=== PATIENT | female | born 1980 | race Caucasian/White ===

== ENCOUNTER 2017-03-31 11:58 | Emergency (ER) | payer SELFPAY ==
[~2017-03-31] VITALS: Ht 152.4 cm; Wt 68.0 kg
[~2017-03-31 11:58] MED LIST: IRON325 MG PO
--- OUTSIDE RECORDS SUMMARY | 2017-03-31 12:06 | External Medical Summary Rpt ---
Demographics Preferred Language Bulgarian Marital Status Unknown Synagogue Affiliation Unknown Race Unknown Ethnic Group Unknown Author Author , NU JUDGE Address Unknown Phone Immunization Unable to retrieve immunization data due to connection failure with Immunization Registry. Please try again later.
--- OUTSIDE RECORDS SUMMARY | 2017-03-31 12:06 | External Medical Summary Rpt ---
Author Author , NU JUDGE Address Unknown Phone [email or web address] Care Team Providers Care Faculty Head Name Role Phone FRANCIS CARTER, FRANCIS CARTER Unavailable Unavailable [facility] Unavailable Unavailable SERVICE, [facility] Unavailable Unavailable SERVICE, [facility] ALEXESSIE DANG, Unavailable Unavailable ALEX AGA MELISSA BELTRAN MD, Unavailable Unavailable MELISSA KHANNA, ANJANA Unavailable Unavailable JEY BELTRAN GE, RUBY Unavailable Unavailable [facility] Unavailable Unavailable [facility], [facility] MCCOUN TWIN, MCCOUN Unavailable Unavailable [facility] GABRIELA, Unavailable Unavailable [facility] SHANNON GARCIA, SHANNON GARCIA Unavailable Unavailable [facility], Unavailable Unavailable [facility] Unavailable [facility], [facility] Purpose Continuity of Care Document - 07-04-2013 through 2016 Problems Code Diagnosis DOS Provider Status 67909 PREMATURE 07-07-2013 [place] MEDICAL RUPTURE SERV [facility] ANTEPARTUM 45829 ABNORM 07-07-2013 [place] MEDICAL HEART SERV [facility] RATE/RHYTHM ANTPRTM COND/COMP 41207 UNSPECIFIED 07-07-2013 [place] MEDICAL FAILED SERV TRIAL OF FOUNDATIO LABOR ANTEPARTUM 41177 C/S [facility] 07-07-2013 [place] W/O MENTION OF [place] [facility] UNS EPIS CARE V252 STERILIZATI 07-07-2013 [facility] 06650 DIAB W/O 07-05-2013 [facility] TYPE I HOSPITAL [JUV] NOT STATED UNCNTRL 14059 THREATENED 07-05-2013 MELISSA BELTRAN MD LABOR ANTEPARTUM 14265 ERLY ONSET 07-05-2013 [facility] W/WO MENTION ANTPRTM COND 52179 MATERNAL 07-05-2013 [facility] MELLITUS WITH DELIVERY 09562 ABNORMAL 07-05-2013 MELISSA Phan MATERNAL RUBY GARCIA GLUCOSE TOLERANCE ANTEPARTUM 61299 TOBACCO USE 07-05-2013 [place] D/O [facility] PG CHILDBIRTH/ PP DELIVERED 20285 HIGH 07-05-2013 [place] HEAD AT HOSPITAL TERM, DELIVERED 27021 GENLY 07-05-2013 [facility] CONTRACTED AMBULANCE PELV [place] [address] RHESUS 07-05-2013 [place] ISOIMMUNIZA [facility] [place] [address] DELAY DELIV 07-05-2013 [facility] SPONT/UNSPE C RUP MEMB DELIV 57448 ABN FETL 07-05-2013 [facility] RATE/RHYTHM DELIV W/WO ANTPRTM COND 10851 ACUTE 07-05-2013 [facility] FAILURE FOLLOW L&D DELIV W/MEN PPC 05325 OLIGOHYDRAM 07-04-2013 [place] MEDICAL NIOS, SERV ANTEPARTUM FOUNDATIO 04739 DELAY DELIV 07-04-2013 [place] MEDICAL AFTER SERV SPONT/UNSPE FOUNDATIO C RUP MEMB ANTPRTM Procedures Procedure DOS Code Location Performer Comment 01210 OR [facility] DELIVERY 3 MEDICAL NN GABRIELA ONLY SERV W/POSTPAR [place] [address] [facility] SUR[facility] 3 Y OF PATHOLOGY [facility] GROSS&ANNA ROSCOPIC EXAM LEVEL V [address] [facility] SURG 3 Y OF PATHOLOGY [facility] GROSS&ANNA ROSCOPIC EXAM ANESTHESI 78240 OR MCCOUN A 3 MEDICAL TWIN SERV DELIVERY FOUNDATIO ONLY LIG/TRNSX 96254 [place] [facility] J 3 MEDICAL NN GABRIELA FALOPIAN SERV TUBE FOUNDATIO DEL/ABDML SURG OTH 6632 [facility] BILATERAL 3 Y Y LIGATION [facility] & DIVISIN [place] TUBES LOW 741 [facility] CERVICAL 3 Y Y HOSPITAL HOSPITAL SECTION SBSQ 91042 [facility] 3 MEDICAL JEY CARE/DAY SERV 25 FOUNDATIO MINUTES OBSERVATI 41754 MELISSA BELTRAN ON/INPATI 3 RUBY GARCIA [facility] [address] [facility] MILEAGE 3 AMBULANCE AMBULANCE PER SERVICE SERVICE STATUTE MILE SBSQ 75272 [facility] 3 MEDICAL JEY CARE/DAY SERV 35 FOUNDATIO MINUTES BLD [facility] 99989 [facility] RAUL PHYS SVCS 3 Y OF DIFFC [facility] MATCH&/EV AL REP 60759 [place] [facility] 3 MEDICAL LD AGA AL SERV PROFILE FOUNDATIO W/O NON-STRES S TESTING US PREG 53129 [place] [facility] 3 MEDICAL LD AGA W/DETAIL SERV FOUNDATIO CEASAR 1ST GESTATION Encounters Encounter Start End Date Code Location Performer Type Date [facility] 3 3 Y INPATIENT HOSPITAL
--- OUTSIDE RECORDS SUMMARY | 2017-03-31 12:06 | External Medical Summary Rpt ---
Author Author , NU JUDGE Address Unknown Phone [email or web address] Care Team Providers Care Certified Ophthalmic Medical Technician Name Role Phone FRANCIS CARTER, FRANCIS CARTER Unavailable Unavailable [facility] Unavailable Unavailable SERVICE, [facility] Unavailable Unavailable SERVICE, [facility] ALEX DANG, Unavailable Unavailable ALEX ALTON BELTRAN MD, Unavailable Unavailable MELISSA KHANNA, ANJANA Unavailable Unavailable JEY HARMARIKA GE, HARPEL Unavailable Unavailable [facility] Unavailable Unavailable [facility], [facility] MCCOUN TWIN, MCCOUN Unavailable Unavailable T[facility] GABRIELA, Unavailable Unavailable [facility] SHANNON GARCIA, SHANNON GARCIA Unavailable Unavailable [facility], Unavailable Unavailable [facility] Unavailable [place] [facility], [facility] Purpose Continuity of Care Document - 07-04-2013 through 2016 Problems Code Diagnosis DOS Provider Status 42053 PREMATURE 07-07-2013 [facility] MEDICAL RUPTURE SERV [facility] ANTEPARTUM 64198 ABNORM 07-07-2013 [facility] RATE/RHYTHM ANTPRTM COND/COMP 83116 UNSPECIFIED 07-07-2013 [facility] MEDICAL FAILED SERV TRIAL OF FOUNDATIO LABOR ANTEPARTUM 12615 C/S [facility] 07-07-2013 [place] W/O MENTION OF [place] [facility] UNS EPIS CARE V252 STERILIZATI 07-07-2013 [facility] 94061 DIAB W/O 07-05-2013 [facility] [JU] NOT STATED UNCNTRL 20513 THREATENED 07-05-2013 MELISSA BELTRAN MD LABOR ANTEPARTUM 16369 ERLY ONSET 07-05-2013 [facility] W/WO MENTION ANTPRTM COND 62427 MATERNAL 07-05-2013 [facility] MELLITUS WITH DELIVERY 84417 ABNORMAL 07-05-2013 MELISSA Phan MATERNAL RUBY GARCIA GLUCOSE TOLERANCE ANTEPARTUM 26623 TOBACCO USE 07-05-2013 [place] D/O [facility] PG CHILDBIRTH/ PP DELIVERED 61075 HIGH 07-05-2013 [place] HEAD AT HOSPITAL TERM, DELIVERED 84778 GENLY 07-05-2013 [facility] CONTRACTED AMBULANCE PEL[place] [address] RHESUS 07-05-2013 [place] ISOIMMUNIZA [facility] [place] [address] DELAY DELIV 07-05-2013 [facility] SPONT/UNSPE C RUP MEMB DELIV 36037 ABN FETL 07-05-2013 [facility] RATE/RHYTHM DELIV W/WO ANTPRTM COND 10301 ACUTE 07-05-2013 [facility] FAILURE FOLLOW L&D DELIV W/MEN PPC 97560 OLIGOHYDRAM 07-04-2013 [facility] MEDICAL NIOS, SERV ANTEPARTUM [facility]OUND[facility] 89123 DELAY DELIV 07-04-2013 [place] MEDICAL AFTER SERV SPONT/UNSPE FOUNDATIO C RUP MEMB ANTPRTM Procedures Procedure DOS Code Location Performer Comment 64613 [place] [facility] DELIVERY 3 MEDICAL NN GABRIELA ONLY SERV W/POSTPAR [facility]AT[facility] YELENA CARE ANESTHESI 86058 MS MCCOUN A 3 MEDICAL TWIN SERV DELIVERY FOUNDATIO ONLY LIG/TRNSX 37772 [place] [facility] J 3 MEDICAL NN GABRIELA FALOPIAN SERV TUBE [facility]AT[facility] DEL/[place] [address] [facility] SURG 3 Y OF PATHOLOGY [place] [facility] GROSS&ANNA ROSCOPIC EXAM LEVEL V 07653 [facility] SURG 3 Y OF PATHOLOGY [place] [facility] GROSS&ANNA ROSCOPIC EXAM OTH 6632 [facility] ALLIANCE BILATERAL 3 Y Y LIGATION [facility] HOSPITAL & DIVISIN [place] TUBES LOW 741 [facility] ALLIANCE CERVICAL 3 Y Y [facility] HOSPITAL SECTION SBSQ 65673 [facility] 3 MEDICAL JEY CARE/DAY SERV 25 FOUNDATIO MINUTES SBSQ 66294 [facility] 3 MEDICAL JEY CARE/DAY SERV 35 FOUNDATIO MINUTES OBSERVATI 49084 MELISSA BELTRAN ON/INPATI 3 RUBY GARCIA [facility] CARE 50 MINUTES GROUND A0425 ANIVAL FLORIAN MILEAGE 3 AMBULANCE AMBULANCE PER SERVICE SERVICE STATUTE MILE [facility] 87824 [facility] RAUL PHYS SVCS 3 Y OF DIFFC [place] [facility] MATCH&/EV AL REP PREG 70845 RAYNA [facility]ITCH[facility] UTERUS 3 MEDICAL LD AGA W/DETAIL SERV FOUNDATIO CEASAR 1ST GESTATION 42284 R[facility]NA CRITONIAFIE BIOPHYSIC 3 MEDICAL LD AGA AL SERV PROFILE FOUNDATIO W/O NON-STRES S TESTING Encounters Encounter Start End Date Code Location Performer Type Date [facility] 3 3 Y INPATIENT HOSPITAL
--- OUTSIDE RECORDS SUMMARY | 2017-03-31 12:06 | External Medical Summary Rpt ---
Author Author NU Luna, [employer]U Production Organization [employer]U [employer] Address Unknown Phone Unavailable
--- OUTSIDE RECORDS SUMMARY | 2017-03-31 12:06 | External Medical Summary Rpt ---
Author Author , NU JUDGE Address Unknown Phone [email or web address] Care Team Providers Care Slip Dumper Name Role Phone FRANCIS CRATER, FRANCIS CARTER Unavailable Unavailable [facility] Unavailable Unavailable SERVICE, [facility] Unavailable Unavailable SERVICE, [facility] ALEX DANG, Unavailable Unavailable ALEX ALTON BELTRAN MD, Unavailable Unavailable MELISSA KHANNA, ANJANA Unavailable Unavailable JEY HARMARIKA GE, HARPEL Unavailable Unavailable [facility] Unavailable Unavailable [facility], [facility] MCCOUN TWIN, MCCOUN Unavailable Unavailable T[facility] GABRIELA, Unavailable Unavailable [facility] GAB[facility]A SHANNON GARCIA, SHANNON GARCIA Unavailable Unavailable [facility], Unavailable Unavailable [facility] Unavailable [facility], [facility] Purpose Continuity of Care Document - 07-04-2013 through 2016 Problems Code Diagnosis DOS Provider Status 87648 PREMATURE 07-07-2013 MD MEDICAL RUPTURE SERV [facility] ANTEPARTUM 47660 ABNORM 07-07-2013 MD MEDICAL HEART SERV [facility] RATE/RHYTHM ANTPRTM COND/COMP 46893 UNSPECIFIED 07-07-2013 MD MEDICAL FAILED SERV TRIAL OF FOUNDATIO LABOR ANTEPARTUM 79981 C[facility] 07-07-2013 [place] W/O [facility] [place] [facility] UNS EPIS CARE V252 STERILIZATI 07-07-2013 [facility] 23201 DIAB W/O 07-05-2013 [facility] TYPE I HOSPITAL [JU] NOT STATED UNCNTRL 71301 THREATENED 07-05-2013 MELISSA BELTRAN MD LABOR ANTEPARTUM 99482 ERLY ONSET 07-05-2013 [facility] W/WO MENTION ANTPRTM COND 77047 MATERNAL 07-05-2013 [facility] MELLITUS WITH DELIVERY 39426 ABNORMAL 07-05-2013 MELISSA Phan MATERNAL RUBY GARCIA GLUCOSE TOLERANCE ANTEPARTUM 53984 TOBACCO USE 07-05-2013 [place] D/O [facility] PG CHILDBIRTH/ PP DELIVERED 01708 HIGH 07-05-2013 [place] HEAD AT HOSPITAL TERM, DELIVERED 69182 GENLY 07-05-2013 [facility] CONTRACTED AMBULANCE PEL[place] [address] RHESUS 07-05-2013 [place] ISOIMMUNIZA [facility] [place] [address] DELAY DELIV 07-05-2013 [facility] SPONT/UNSPE C RUP MEMB DELIV 13132 ABN FETL 07-05-2013 [facility] RATE/RHYTHM DELIV W/WO ANTPRTM COND 88142 ACUTE 07-05-2013 [facility] FAILURE FOLLOW L&D DELIV W/MEN PPC 13303 OLIGOHYDRAM 07-04-2013 MD MEDICAL NIOS, SERV ANTEPARTUM FOUNDATIO 98726 DELAY DELIV 07-04-2013 MD MEDICAL AFTER SERV SPONT/UNSPE FOUNDATIO C RUP MEMB ANTPRTM Procedures Procedure DOS Code Location Performer Comment 22116 MD [facility] DELIVERY 3 MEDICAL NN GABRIELA ONLY SERV W/POSTPAR FOUNDATIO YELENA CARE ANESTHESI 71828 MD MCCOUN A 3 MEDICAL TWIN SERV DELIVERY FOUNDATIO ONLY LIG/TRNSX 19902 MD [facility] J 3 MEDICAL NN GABRIELA FALOPIAN SERV TUBE FOUNDATIO DEL/[place] [address] [facility] SURG 3 Y OF PATHOLOGY [place] [facility] GROSS&ANNA ROSCOPIC EXAM LEVEL V 98080 [facility] SURG 3 Y OF PATHOLOGY [place] [facility] GROSS&ANNA ROSCOPIC EXAM OTH 6632 [facility] BILATERAL 3 Y Y LIGATION [facility] & DIVISIN [place] TUBES LOW 741 [facility] CERVICAL 3 Y Y [facility] HOSPITAL SECTION SBSQ 06808 [facility] 3 MEDICAL JEY CARE/DAY SERV 25 FOUNDATIO MINUTES SBSQ 92019 [facility] 3 MEDICAL JEY CARE/DAY SERV 35 FOUNDATIO MINUTES OBSERVATI 27524 MELISSA BELTRAN ON/INPATI 3 RUBY GARCIA [facility] CARE 50 MINUTES GROUND A0425 ANIVAL [place] MILEAGE 3 AMBULANCE AMBULANCE PER SERVICE SERVICE STATUTE MILE [facility] 42512 [facility] RAUL PHYS SVCS 3 Y OF DIFFC [place] [facility] MATCH&/EV AL REP PREG 88229 RAYNA CRITCHFI[facility] UTERUS 3 MEDICAL LD AGA W/DETAIL SERV FOUNDATIO CEASAR 1ST GESTATION 93128 RAYNA CRITONIAFIE BIOPHYSIC 3 MEDICAL LD AGA AL SERV PROFILE FOUNDATIO W/O NON-STRES S TESTING Encounters Encounter Start End Date Code Location Performer Type Date [facility] 3 3 Y INPATIENT HOSPITAL
--- OUTSIDE RECORDS SUMMARY | 2017-03-31 12:06 | External Medical Summary Rpt ---
Demographics Preferred Language Dominican Marital Status Unknown Christian Affiliation Unknown Race Unknown Ethnic Group Unknown Author Author , NU JUDGE Address Unknown Phone Immunization Unable to retrieve immunization data due to connection failure with Immunization Registry. Please try again later.
--- OUTSIDE RECORDS SUMMARY | 2017-03-31 12:06 | External Medical Summary Rpt ---
Author Author , NU JUGDE Address Unknown Phone [email or web address] Care Team Providers Care Sleeve Setter Lockstitch Name Role Phone FRANCIS CARTER, FRANCIS CARTER Unavailable Unavailable [facility] Unavailable Unavailable SERVICE, [facility] Unavailable Unavailable SERVICE, [facility] ALEXESSIE DANG, Unavailable Unavailable ALEX AGA MELISSA BELTRAN MD, Unavailable Unavailable MELISSA KHANNA, ANJANA Unavailable Unavailable JEY BELTRAN GE, RUBY Unavailable Unavailable [facility] Unavailable Unavailable [facility], [place] [facility] MCCOUN TWIN, MCCOUN Unavailable Unavailable [facility] GABRIELA, Unavailable Unavailable [facility] GABRIELA SHANNON GARCIA, SHANNON GARCIA Unavailable Unavailable [facility], Unavailable Unavailable [facility] Unavailable [place] [facility], [facility] Purpose Continuity of Care Document - 07-04-2013 through 2016 Problems Code Diagnosis DOS Provider Status 44237 PREMATURE 07-07-2013 [place] [facility] RUPTURE SERV [facility] ANTEPARTUM 45461 ABNORM 07-07-2013 [place] [facility] RATE/RHYTHM ANTPRTM COND/COMP 46039 UNSPECIFIED 07-07-2013 [place] MEDICAL FAILED SERV TRIAL OF FOUNDATIO LABOR ANTEPARTUM 56569 C[facility]S [facility] 07-07-2013 [place] W/O MENTION OF [place] [facility] UNS EPIS CARE V252 STERILIZATI 07-07-2013 [facility] HOSPI 19504 DIAB W/O 07-05-[address] [facility] TYPE I HOSPITAL [JUV] NOT STATED UNCNTRL 77280 THREATENED 07-05-2013 MELISSA BELTRAN MD LABOR ANTEPARTUM 63813 ERLY ONSET 07-05-2013 [facility] W/WO MENTION ANTPRTM COND 68790 MATERNAL 07-05-2013 [facility] MELLITUS WITH DELIVERY 42383 ABNORMAL 07-05-2013 MELISSA Phan MATERNAL RUBY GARCIA GLUCOSE TOLERANCE ANTEPARTUM 46149 TOBACCO USE 07-05-2013 [place] D/O [facility] PG CHILDBIRTH/ PP DELIVERED 05099 HIGH 07-05-2013 [place] HEAD AT HOSPITAL TERM, DELIVERED 02796 GENLY 07-05-2013 [facility] CONTRACTED AMBULANCE PELV [place] [address] RHESUS 07-05-2013 [place] ISOIMMUNIZA [facility] [place] [address] DELAY DELIV 07-05-2013 [facility] SPONT/UNSPE C RUP MEMB DELIV 61263 ABN FETL 07-05-2013 [facility] RATE/RHYTHM DELIV W/WO ANTPRTM COND 32453 ACUTE 07-05-2013 [facility] FAILURE FOLLOW L&D DELIV W/MEN PPC 86930 OLIGOHYDRAM 07-04-2013 [place] MED[facility] NIOS, SERV ANTEPARTUM FOUNDATIO 77929 DELAY DELIV 07-04-2013 [place] MEDICAL AFTER SERV SPONT/UNSPE FOUNDATIO C RUP MEMB ANTPRTM Procedures Procedure DOS Code Location Performer Comment 74472 [place] [facility] DELIVERY 3 MEDICAL NN GABRIELA ONLY SERV W/POSTPAR [place] [address] [facility] 3 Y [facility] PATHOLOGY [place] [facility] GROSS&ANNA ROSCOPIC EXAM LEVEL V [address] [facility] Y OF PATHOLOGY [place] [facility] GROSS&ANNA ROSCOPIC EXAM ANESTHESI 90283 [place] MCCOUN A 3 MEDICAL TWIN SERV DELIVERY FOUNDATIO ONLY LIG/TRNSX 17707 [place] [facility] J 3 MEDICAL NN GABRIELA FALOPIAN SERV TUBE FOUNDATIO DEL/ABDML SURG OTH 6632 [facility] BILATERAL 3 Y Y LIGATION [facility]OSPITAL & DIVISIN [place] TUBES LOW 741 [facility] CERVICAL 3 Y Y HOSPITAL HOSPITAL SECTION SBSQ 24819 [facility] 3 MEDICAL JEY CARE/DAY SERV 25 FOUNDATIO MINUTES OBSERVATI 41598 MELISSA BELTRAN ON/INPATI 3 RUBY GARCIA [facility] MINUTES GROUND A0425 [facility] MILEAGE 3 AMBULANCE AMBULANCE PER SERVICE SERVICE STATUTE MILE SBSQ 27895 [facility] 3 MEDICAL JEY CARE/DAY SERV 35 FOUNDATIO MINUTES BLD [facility] 470[address] [facility] RAUL PHYS SVCS 3 [facility] MATCH&/EV [place] REP 17825 [place] [facility] 3 MEDICAL LD AGA AL SERV PROFILE FOUNDATIO W/O NON-STRES S TESTING US PREG 46290 [place] [facility]TER[facility] 3 MEDICAL LD AGA W/DETAIL SERV FOUNDATIO CEASAR 1ST GESTATION Encounters Encounter Start End Date Code Location Performer Type Date [facility] 3 3 Y INPATIENT HOSPITAL
--- NOTE | 2017-03-31 12:29 | Urgent Treatment Center Report ---
History of Present Issue Date/Time Seen by Provider 03/31/17 1225 Visit Reason Pt arrived:Walked Presenting Problem:PT C/O PAIN AND BURNING WITH URINATION THAT STARTED 2 DAYS AGO. ADVISES SHE HAS A HX OF UTI'S Location if Accident: Onset of symptoms date/time:/ or onset unknown for:MEDICAL HX UNKNOWN Have you (or family members/close friends) recently traveled outside the [place]? N If Yes, where/when: Have you had exposure to infectious disease within the past month? TB? Other? Specify: Patient state that a couple of days ago she began having pain and burning with urination States that she has had a history with frequent UTI's and this one feels simular to the previous ones state that she knew she needed to come in and get checked and on antibiotics before it got too bad ALLERGIES Coded Allergies: No Known Allergies (03/31/17) History Medical History General Angina: No OH: No Hypertension? No Hyperlipidemia? No CHF? No COPD? No Asthma? No CVA? No Seizures? No Diabetes? Yes Insulin Dependent: No Insulin Pump: No Home FSBS? Yes GB Disease: No Nephritic Syndrome? No Asplenia? No Sickle Cell Disease? No MRSA? No TB? No Cancer? No Immunization HX DT/Tetanus 1-4 Years Ago Flu Refused Pneumonia Never Had Surgical Hx Previous Surgery?Y BX BIOPSY Social History Smoking Hx Smoker: Current Every Day Smoker Tobacco: Yes Type Cigarettes Packs/day < 1 Pack Alcohol Alcohol: No Review of Systems All Other Systems Reviewed and Negative Genitourinary dysuria, frequency, pain. Physical Exam Vital Signs Vital Signs Date Time Temp Pulse Resp B/P Pulse O2 O2 Flow FiO2 Ox Delivery Rate 03/31 1207 97.9 77 16 156/78 98 General Appearance normal appearance, WD/WN, no apparent distress Respiratory Status Yes: trachea midline, chest symmetrical, non tender chest. No: respiratory distress. 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 No Results/Orders Laboratory Tests 07/29/17 1215: Urine Color YELLOW, Urine Appearance Clear, Urine pH 6.0, Ur Specific Fleming 1.010, Urine Protein NEGATIVE, Urine Ketones NEGATIVE, Urine Blood 2+ H, Urine Nitrate NEGATIVE, Urine Bilirubin NEGATIVE, Urine Urobilinogen 0.2, Ur Leukocyte Esterase 2+ H, Urine Glucose NEGATIVE Orders Procedure Date/time Status [facility] URINE DIPSTICK 03/31 1215 Complete Departure Departure Time of Disposition 1233 Disposition DC Home or Self Care(routine) Clinical Impression Primary Impression: UTI (urinary tract infection) Qualifiers: Urinary tract infection type: site unspecified Hematuria presence: with hematuria Qualified Code: N39.0 - Urinary tract infection, site not specified Condition STABLE Patient Instructions Urinary Tract Infection Additional Instructions Drink plenty of fluids Follow up with family doctor if needed No bathes, wipe from front to back and make sure to urinate after intercoarse Return if needed Discharge Counseling Counseled pt/family regarding diagnosis, test results, medications/RX, home care, follow up needs Prescriptions Current Visit Scripts SULFAMETHOXAZOLE W/TRIMETHOPRI (Bactrim Ds Tab) 1 TABLET PO BID #14 TAB Phenazopyridine HCl (Pyridium) 100 MG PO TID #6 TAB at 1241
--- NOTE | 2017-03-31 12:29 | [facility]gent [facility] Report ---
History of Present Issue Date/Time Seen by Provider 03/31/17 1225 Visit Reason Pt arrived:Walked Presenting Problem:PT C/O PAIN AND BURNING WITH URINATION THAT STARTED 2 DAYS AGO. ADVISES SHE HAS A HX OF UTI'S Location if Accident: Onset of symptoms date/time:/ or onset unknown for:MEDICAL HX UNKNOWN Have you (or family members/close friends) recently traveled outside the [place]? N If Yes, where/when: Have you had exposure to infectious disease within the past month? TB? Other? Specify: Patient state that a couple of days ago she began having pain and burning with urination States that she has had a history with frequent UTI's and this one feels simular to the previous ones state that she knew she needed to come in and get checked and on antibiotics before it got too bad ALLERGIES Coded Allergies: No Known Allergies (03/31/17) History Medical History General Angina: No [place]: No Hypertension? No Hyperlipidemia? No CHF? No COPD? No Asthma? No CVA? No Seizures? No Diabetes? Yes Insulin Dependent: No Insulin Pump: No Home FSBS? Yes GB Disease: No Nephritic Syndrome? No Asplenia? No Sickle Cell Disease? No MRSA? No TB? No Cancer? No Immunization HX DT/Tetanus 1-4 Years Ago Flu Refused Pneumonia Never Had Surgical Hx Previous Surgery?Y BX BIOPSY Social History Smoking Hx Smoker: Current Every Day Smoker Tobacco: Yes Type Cigarettes Packs/day < 1 Pack Alcohol Alcohol: No Review of Systems All Other Systems Reviewed and Negative Genitourinary dysuria, frequency, pain. Physical Exam Vital Signs Vital Signs Date Time Temp Pulse Resp B/P Pulse O2 O2 Flow FiO2 Ox Delivery Rate 03/31 1207 97.9 77 16 156/78 98 General Appearance normal appearance, WD/WN, no apparent distress Respiratory Status Yes: trachea midline, chest symmetrical, non tender chest. No: respiratory distress. 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 No Results/Orders Laboratory Tests 07/29/17 1215: Urine Color YELLOW, Urine Appearance Clear, Urine pH 6.0, Ur Specific [place] 1.010, Urine Protein NEGATIVE, Urine Ketones NEGATIVE, Urine Blood 2+ H, Urine Nitrate NEGATIVE, Urine Bilirubin NEGATIVE, Urine Urobilinogen 0.2, Ur Leukocyte Esterase 2+ H, Urine Glucose NEGATIVE Orders Procedure Date/[facility] 03/31 1215 Complete Departure Departure Time of Disposition 1233 Disposition DC Home or Self Care(routine) Clinical Impression Primary Impression: UTI (urinary tract infection) Qualifiers: Urinary tract infection type: site unspecified Hematuria presence: with hematuria Qualified Code: N39.0 - Urinary tract infection, site not specified Condition STABLE Patient Instructions Urinary Tract Infection Additional Instructions Drink plenty of fluids Follow up with family doctor if needed No bathes, wipe from front to back and make sure to urinate after intercoarse Return if needed Discharge Counseling Counseled pt/family regarding diagnosis, test results, medications/RX, home care, follow up needs Prescriptions Current Visit Scripts SULFAMETHOXAZOLE W/TRIMETHOPRI (Bactrim Ds Tab) 1 TABLET PO BID #14 TAB Phenazopyridine HCl (Pyridium) 100 MG PO TID #6 TAB at 1241
[2017-03-31] MEDS ORDERED: PYRIDIUM100 M2 PO (12:36)
[2017-03-31] MEDS ORDERED: BACTRIM DS 8001 TA1 PO (12:36)
[2017-03-31 12:37] LABS: URINE BILIRUBIN - DIPSTICK NEGATIVE (NEG); URINE BLOOD 2+ (NEG)
[2017-03-31 12:48] VITALS: BP 156/78
== END 2017-03-31 12:49 | disposition home or self-care (01) ==
LOC: UTC 11:58
PROVIDERS: Nurse Practitioner
DX: N39.0 Urinary tract infection, site not specified (principal); Z72.0 Tobacco use